=== PATIENT | female | born 1955 | race Hispanic/Latino ===

== ENCOUNTER 2017-09-24 06:13 | Day surgery (SDC) | payer MEDICARE, OTHER ==
[2017-09-20 11:06] VITALS: BMI 32.5
[2017-09-24 06:53] LABS: BASO # 0.04 K/mm3 (0.0-2.0); BASO % 0.7 % (0.0-3.0); EOS # 0.1 (0.0-0.7); EOS % 2.4 % (1.5-5.0); GRAN # 4.29 (1.4-6.5); HEMOGLOBIN 12.4 g/dL (12.0-16.0); MEAN CELL VOLUME 91.6 fl (80.0-105.0); MEAN CORPUSCULAR HEMOGLOBIN 30.5 pg (25.0-35.0); MEAN CORPUSCULAR HGB CONC 33.3 g/dl (31.0-37.0); MEAN PLATELET VOLUME 9.2 fl (7.0-11.0); MONO # 0.5 (0.1-0.6); MONO % 7.9 % (1.0-6.0); RBC 4.06 10^6/uL (3.5-6.1); RED CELL DISTRIBUTION WIDTH 14.1 % (11.5-14.5)
[2017-09-24] MEDS ORDERED: Lidocaine 2% Inj (20ml) ONE (06:57)
[2017-09-24] MEDS ORDERED: Midazolam 2 MG/2 ML VIAL ONE ×3 (06:58→08:39)
[2017-09-24] MEDS ORDERED: Phenylephrine 10 mg/ml Inj ONE (06:58)
[2017-09-24] MEDS ORDERED: Iodixanol 320 MG/ML 100 ML BOTTLE IV ONE (06:59)
[2017-09-24] MEDS ORDERED: Iodixanol 320 MG/ML 200 ML BOTTLE IV ONE (06:59)
[2017-09-24] MEDS ORDERED: Iohexol 350mgl/ml 50 ML ONE (06:59)
[2017-09-24] MEDS ORDERED: Nitroglycerin 50mg in D5W 0 MG/0 ML BOTTLE IV ONE (06:59)
[2017-09-24] MEDS ORDERED: HEPARIN SODIUM/NS 2,000 ML IV ONE (06:59)
[2017-09-24 07:05] LABS: BLOOD UREA NITROGEN 11 mg/dL (7-21); CALCIUM 9.2 mg/dL (8.4-10.5); GFR AFRICAN-AMERICAN > 60; GFR NON-AFRICAN AMERICAN > 60
[2017-09-24 07:09] LABS: INR 1.48 (0.93-1.08); PROTHROMBIN TIME 17.2 SECONDS (9.4-12.5)
[2017-09-24 07:10] LABS: PARTIAL THROMBOPLASTIN TIME 37.7 Seconds (25.1-36.5)
[2017-09-24 09:28] VITALS: TEMP 97.8
[2017-09-24] MEDS ORDERED: Sodium Chloride 0.9% 1,000 ML IV SCH (09:30)
[2017-09-24 10:07] VITALS: RESP 16
[2017-09-24 12:01] VITALS: O2SAT 95
[2017-09-24 13:19] VITALS: BP 116/53; PULSE 73
--- NOTE | 2017-09-24 15:32 | CARD ---
APPROVED REPORT EKG Measurement Heart [id number] <Conclusion> Electronic ventricular pacemaker
--- NOTE | 2017-09-24 20:10 | CARDCATH ---
PROCEDURE DATE: 09/24/2017 HISTORY: The patient is a 62-year-old woman with a history of a cardiomyopathy as well as severe aortic regurgitation and was treated with an aortic valve replacement. Her LV function has improved over time. She is status post biventricular pacer as well as defibrillator placement. Her stress test showed a slight deterioration of her LV function with a high gradient across the prosthetic valve and decreasing in LV function with ischemia in the apex. Because of this, cardiac catheterization was recommended for cardiomyopathy and her valvular heart disease. PROCEDURE: Left heart catheterization with coronary arteriography and supra-aortic valvular injection. The right femoral artery was cannulated with a 6-[place] sheath. There were no complications. I performed moderate sedation which included the presence of an independent trained observer that assisted in monitoring the patient's level of consciousness and physiologic status. After administration of Versed and fentanyl, my intra-service time was 15 minutes. The findings on catheterization revealed a left dominant circulation. The RCA which was a small vessel, was free of significant disease. The left main artery was unremarkable. The circumflex artery which fed the PDA as well as the obtuse marginal branches was free of significant disease. The LAD and diagonal vessels are free of significant disease. Supra-aortic valvular injection revealed no aortic insufficiency with a dilated ascending aorta. I crossed the aortic valve with a catheter and measured a 10-mm eqwd-dl-wods gradient across the prosthetic aortic valve which is within normal limits. Angio-Seal was used to close the femoral artery site. The patient tolerated the procedure well. In summary, the procedure revealed unremarkable coronary arteries. No aortic insufficiency across the prosthetic valve. Normal aortic valve gradient across the prosthetic valve. Given these findings, the echocardiogram results have exaggerated the gradient across the aortic valve. The patient's treatment should be continued her Coumadin and present medications. She needs to restart on a cardiac rehab program. Kenneth Galindo MD
== END 2017-09-24 14:30 | disposition home or self-care (01) ==
LOC: CATH 06:13
PROVIDERS: ATTEND Internal Medicine Cardiovascular Disease
DX: I42.9 Cardiomyopathy, unspecified (principal); I10 Essential (primary) hypertension; M81.0 Age-related osteoporosis without current pathological fracture; E78.5 Hyperlipidemia, unspecified; Z95.810 Presence of automatic (implantable) cardiac defibrillator; Z95.2 Presence of prosthetic heart valve
CPT/HCPCS: 36415; 80048; 85025; 85610; 85730; 86850; 86900; 93005; 93458; 99152; C1760; C1769; C1887 ×2; C2629; J1644; J2250; J3010; J7040 ×2; Q9967

== ENCOUNTER 2018-09-09 06:16 | Outpatient (CLI) | payer MEDICARE | END 2018-09-09 06:17 | disposition home or self-care (01) | LOC: CARDIO 06:16 ==